=== PATIENT | male | born 1995 | race Caucasian/White ===

== ENCOUNTER 2019-06-29 22:41 | Emergency (ER) | payer SELFPAY ==
[2019-06-29 23:06] VITALS: BP 129/73; PULSE 93; RESP 18; TEMP 37.6; O2SAT 95; BMI 27.1
[2019-06-29 23:25] VITALS: BP 104/60; PULSE 84; RESP 22; TEMP 37.3; O2SAT 99
[2019-06-29 23:40] LABS: Influenza A by IFA Negative (Negative); Influenza B by IFA Positive (Negative)
--- NOTE | 2019-06-29 23:44 | W.ED.GENADLT ---
HPI - General Adult General: Chief complaint: Fever Stated complaint: fever, body aches Time Seen by Provider: 06/29/19 23:21 History of Present Illness: HPI narrative: Flulike symptoms started early this morning MD complaint: Flu Onset (ago): hour(s) Associated symptoms: Deny chest pain, dyspnea, headache(s), nausea, rash or vomiting Review of Systems Const: Reports: fever, chills and body aches Eyes: Denies: change in vision or blurry vision ENMT: Denies: throat pain or nasal congestion Card: Denies: chest pain or shortness of breath on exertion Resp: Reports: non-productive cough; Denies: shortness of breath or productive cough GI: Denies: abdominal pain, nausea or vomiting : Denies: difficulty urinating Musc: Denies: extremity pain Skin/Breast: Denies: rash Neuro: Denies: headache Psych: Denies: anxiety or depression Chaitanya/Lymph: Denies: easy bruising PFSH ED PFSH: Social History Smoking and tobacco status: current every day smoker Physical Exam Const: COMMON NORMALS: no apparent distress, average body habitus and oriented x3 HENMT: COMMON NORMALS: normocephalic HEAD & SCALP: normal to inspection and normocephalic FACE & SINUS: normal facial exam Eye: COMMON NORMALS: conjunctivae normal GENERAL EYE: normal appearance of both eyes CONJUNCTIVA: Yes conjunctivae normal Neck/C-Spine: COMMON NORMALS: no JVD Chest: COMMONS NORMALS: inspection of chest normal Resp: COMMON NORMALS: normal respiratory effort and clear to auscultation bilaterally AUSCULTATION: clear to auscultation bilaterally Cardio: COMMON NORMALS: no JVD, regular rate and regular rhythm RATE: regular rate RHYTHM: regular rhythm GI: COMMON NORMALS: normal to inspection, nondistended, normoactive bowel sounds Extremity: COMMON NORMALS: normal to inspection and full ROM Neuro: COMMON NORMALS: oriented x3 Course Vital Signs: Vital signs: Vital Signs Temperature 99.2 F 06/29/19 23:25 Pulse Rate 84 06/29/19 23:25 Respiratory Rate 22 H 06/29/19 23:25 Blood Pressure 104/60 06/29/19 23:25 Pulse Oximetry 99 06/29/19 23:25 [facility] - General Adult Lab Data: Labs: Lab Results 06/29/19 Range/Units 23:11 Influenza Type A A g Negative (Negative) POC Influenza B Ag Positive H (Negative) Coding Level of Care Code ED Microfabrication Engineer Manager for Jamir Bangura
[2019-06-29 23:59] LABS: Add Urine Microscopic? NO
--- NOTE | 2019-06-30 00:04 | PC.NURSE ---
RN reviewed and agrees with assessment.
[2019-06-30] MEDS: oseltamivir phosphate 75 mg Capsule PO (00:05)
[2019-06-30 00:14] LABS: Bilirubin Urine Neg (NEGATIVE); Blood Urine Neg (Negative); Glucose Urine UA Norm (Normal); Ketones Urine Negative (Negative); Leukocyte Esterase Urine Negative (Negative); Nitrate Urine Negative (Negative); Protein Urine Neg (Negative); Urine Appearance Clear (CLEAR); Urine Color Yellow (Yellow); Urobilinogen Urine Norm (Negative); pH Urine 6 (5-7)
[2019-06-30 00:16] VITALS: BP 120/64; PULSE 86; RESP 18; TEMP 37.6; O2SAT 99
== END 2019-06-30 00:10 | disposition home or self-care (01) ==
PROVIDERS: Emergency Provider Nurse Practitioner Family
DX: R50.9 Fever, unspecified (principal); R05 Cough; F17.200 Nicotine dependence, unspecified, uncomplicated
CPT/HCPCS: 81003; 87804; 99282; 99283

== ENCOUNTER → 2020-05-11 12:51 | Outpatient (BNVA) | payer OTHER, SELFPAY | PROVIDERS: Visit Provider Nurse Practitioner Family | DX: Z20.828 Contact with and (suspected) exposure to other viral communicable diseases (principal) | CPT/HCPCS: 87635 ==

== ENCOUNTER 2020-11-15 12:32 | Emergency (ER) | payer SELFPAY ==
[2020-11-15 12:54] VITALS: BP 111/64; PULSE 87; RESP 18; TEMP 37.1; O2SAT 98; BMI 24.4
--- NOTE | 2020-11-15 12:59 | W.ED.DENTAL ---
HPI - Dental/Oral General: Chief complaint: Dental/Oral Stated complaint: ORAL/DENTAL Time Seen by Provider: 11/15/20 12:59 History of Present Illness: HPI Narrative: Patient is a 25-year-old male comes to the ED with dental pain. Dental pain started approximately 3 days ago. The pain is located on his bottom right third molar. Says his right side of his face is hurting as well. Patient also has a mole on his left lower abdomen that has been growing and getting larger over the past year. Associated symptoms: Denies fever(s) or odynophagia Review of Systems Const: Denies: fever(s), chills or fatigue Eyes: Denies: change in vision or eye discomfort ENMT: Reports: dental pain; Denies: throat pain, odynophagia, nasal discharge or nasal congestion Card: Denies: chest pain, palpitations, edema, swelling of feet/ankles, dyspnea on exertion or orthopnea Resp: Denies: dyspnea, productive cough or non-productive cough GI: Denies: abdominal pain, nausea, vomiting, diarrhea, constipation or hematochezia : Denies: flank pain, difficulty urinating, dysuria or hematuria Musc: Denies: neck pain, back pain or extremity swelling Skin/Breast: Reports: new lesions (Large mole in left lower abdomen); Denies: rash Neuro: Denies: headache(s), numbness in extremities or weakness in extremities PFSH ED PFSH: Social History Smoking and tobacco status: current every day smoker Physical Exam Const: COMMON NORMALS: no acute distress, patient oriented x3 and alert GENERAL APPEARANCE: cooperative and comfortable HENMT: COMMON NORMALS: normocephalic HEAD & SCALP: normocephalic MOUTH: Normal oral and palatal mucosa present TEETH & GINGIVA: Yes caries (Bottom right molar tooth #32.) and Yes gingiva abnormal (Gingival edema surrounding tooth #32.) THROAT: posterior oropharynx normal and uvula midline Neck/C-Spine: COMMON NORMALS: supple GENERAL: Yes normal visual inspection Resp: COMMON NORMALS: normal respiratory effort, No retractions, No use of accessory muscles and clear to auscultation bilaterally AUSCULTATION: clear to auscultation bilaterally Cardio: COMMON NORMALS: regular rate, regular rhythm, S1 normal heart sound present, S2 normal heart sound present, No gallops present (Cardio), No clicks present (Cardio), No murmurs present (Cardio) and Peripheral pulses 2+ throughout RATE: regular rate RHYTHM: regular rhythm HEART SOUNDS: S1 normal heart sound present and S2 normal heart sound present PERIPHERAL PULSES: Peripheral pulses 2+ throughout GI: COMMON NORMALS: Normal to inspection, nondistended, normoactive bowel sounds present, Soft to palpation, non-tender and no masses PALPATION: Yes Soft to palpation : COMMON NORMALS: Yes no CVA tenderness BLADDER/KIDNEY EXAM: Yes no CVA tenderness Back/Pelvis: COMMON NORMALS: no CVA tenderness Neuro: COMMON NORMALS: patient oriented x3 and moves all extremities SENSORIUM/ORIENTATION: Yes alert Skin: NARRATIVE SKIN EXAM: On patient's left lower abdomen he has a large irregular shaped dark brown mole. The mole is approximately 2 cm in diameter and patient says the mole has grown that big in a little less than a year. GENERAL SKIN EXAM: dry skin Course Vital Signs: Vital signs: Vital Signs Temperature 98.7 F 11/15/20 12:54 Pulse Rate 61 11/15/20 13:28 Respiratory Rate 18 11/15/20 13:28 Blood Pressure 116/72 11/15/20 13:28 Pulse Oximetry 95 11/15/20 13:28 MDM - Dental/Oral MDM Narrative: Medical decision making narrative: Patient is a 25-year-old male comes to the ED with dental pain and he also has a mole on his left lower abdomen he is concerned about. Exam shows a patient that nontoxic-appearing and in no acute distress. He has dental caries of on bottom right third molar. Patient's molar on his left lower abdomen is large and approximately 2 cm in diameter. It is irregularly shaped and brown. Patient says it has grown from a tiny brown spot to the size with and under a year. I told him I would refer him to a racing secretary to evaluate the mole. I placed order with case management for patient to refer patient to Derm. Patient was given a dose of clindamycin and hydrocodone here in the ED. He was discharged home with a prescription for clindamycin. I told patient to contact a dentist and set up an appoint with them for further evaluation of dental pain. I told the rifle case repairer will contact them the next several days set up an appointment with the racing secretary. Return to ED precautions given. Patient understood agree with plan. Discharge Plan Discharge Patient Disposition: Home Clinical Impression: Pain due to dental caries, Atypical mole Condition: Stable Prescriptions: New clindamycin HCl 150 mg capsule 300 mg PO QID 7 Days Qty: 56 RF: 0 No Action No Known Home Medications RF: 0 Discharge Orders: Discharge ED (Routine); Ordered 11/15/20 Ordered By: James Ku Discharge Diet: Regular Discharge Activity: Resume usual activity Patient Instructions: Dental Caries (ED) Activity Restrictions/Additional Instructions: Follow-up with medical provider as directed. Schedule appointment with your dentist to have dental pain evaluated. manager of software development will contact you next several days to set up an appointment with a racing secretary. Take medications as prescribed. Take [id number] Motrin or Tylenol for pain. Return to the ER or your medical provider if condition worsens. Please read and understand discharge instructions. Thank you for choosing [facility] for your healthcare needs today. Please realize this is an emergency room and that we are providing you with a medical screening exam and this may not be complete and all inclusive of all the testing and or work up that you may need to determine your ailment or severity of your illness. It is very important that you follow up as instructed or that you return to the Emergency Department should you have concerns or if your condition changes or worsens in any way. Coding Level of Care Code ED Deputy Chief Magistrate for Jamir Bangura Exam Comprehensive
[2020-11-15] MEDS: clindamycin 150 mg Capsule 300 MG PO (13:23)
[2020-11-15] MEDS: HYDROcodone-acetaminophen 5-325 mg Tablet 1 TAB PO (13:24)
[2020-11-15 13:28] VITALS: BP 116/72; PULSE 61; RESP 18; O2SAT 95
--- NOTE | 2020-11-16 15:32 | DCPLANNER ---
residence manager had message to schedule a follow up appointment or patient with dermatology. residence manager called the dermatology clinic, spoke with Tere, gave clinic patients information. A follow up appointment is scheduled for Tuesday, January 12, [address] at 2:[address] Jackson. Clinic will call patient with appointment information.
--- NOTE | 2021-01-15 14:03 | DCPLANNER ---
Patient had a follow up appointment scheduled with dermatology for 01.12.21 appointment was rescheduled to a later date, patient is aware.
== END 2020-11-15 13:28 | disposition home or self-care (01) ==
PROVIDERS: Emergency Provider Physician Assistant
DX: K02.9 Dental caries, unspecified (principal); D36.7 Benign neoplasm of other specified sites; F17.210 Nicotine dependence, cigarettes, uncomplicated
CPT/HCPCS: 99283

== ENCOUNTER → 2021-01-07 16:29 | Outpatient (BNVA) | payer SELFPAY | PROVIDERS: Visit Provider Family Medicine | DX: F17.219 Nicotine dependence, cigarettes, with unspecified nicotine-induced disorders (principal); R20.0 Anesthesia of skin; R20.2 Paresthesia of skin; Z76.89 Persons encountering health services in other specified circumstances | CPT/HCPCS: 80053; 84443; 85025; 86803 ==

== ENCOUNTER → 2021-01-20 14:15 | Outpatient (BNVA) | payer OTHER, SELFPAY | PROVIDERS: Visit Provider Nurse Practitioner Family | DX: Z20.822 Contact with and (suspected) exposure to COVID-19 (principal); J06.9 Acute upper respiratory infection, unspecified | CPT/HCPCS: 87426 ==

== ENCOUNTER 2021-05-14 10:44 | Emergency (ER) | payer SELFPAY ==
[2021-05-14 12:03] VITALS: BP 111/64; PULSE 102; RESP 16; TEMP 37.7; O2SAT 96
--- NOTE | 2021-05-14 13:33 | PC.NURSE ---
pt called and stated they left ed because it was taking to long.
[2021-05-14 13:56] LABS: Adenovirus Not Detected (NOT DETECT); Chlamydia Pneumoniae Not Detected (NOT DETECT); Coronavirus 229E,HKU1,NL63,OC4 Not Detected (NOT DETECT); Human Metapneumovirus Not Detected (NOT DETECT); Human Rhinovirus/Enterovirus Not Detected (NOT DETECT); Influenza A Not Detected (NOT DETECT); Influenza A H1 Not Detected (NOT DETECT); Influenza A H1-2009 Not Detected (NOT DETECT); Influenza A H3 Not Detected (NOT DETECT); Influenza B Not Detected (NOT DETECT); Mycoplasma Pneumoniae Not Detected (NOT DETECT); Parainfluenza Virus Type 1 Not Detected (NOT DETECT); Parainfluenza Virus Type 2 Not Detected (NOT DETECT); Parainfluenza Virus Type 3 Not Detected (NOT DETECT); Parainfluenza Virus Type 4 Not Detected (NOT DETECT); Respiratory Syncytial Virus A Not Detected (NOT DETECT); Respiratory Syncytial Virus B Not Detected (NOT DETECT); SARS-COV-2 Detected (NOT DETECT)
[2021-05-14 13:58] LABS: Influenza A Not Detected (NOT DETECT); Influenza A H1 Not Detected (NOT DETECT); Influenza A H1-2009 Not Detected (NOT DETECT); Influenza A H3 Not Detected (NOT DETECT); Influenza B Not Detected (NOT DETECT); Results from Genmark
--- NOTE | 2021-05-14 17:09 | PC.NURSE ---
Left voice mail to return call to the ER
--- NOTE | 2021-05-15 16:17 | PC.NURSE ---
attempted to notify pt of postive covid results
== END 2021-05-14 13:34 | disposition left against medical advice (07) ==
PROVIDERS: Emergency Medicine; Emergency Provider Family Medicine
DX: Z53.21 Procedure and treatment not carried out due to patient leaving prior to being seen by health care provider (principal)
CPT/HCPCS: 87631; 87635

== ENCOUNTER 2021-07-07 12:24 | Day surgery (SDC) | payer SELFPAY ==
[2021-07-07] VITALS (8 sets, daily range): BP systolic 111–123; BP diastolic 50–75; PULSE 76–97; RESP 16–24; TEMP 36.2–38; O2SAT 94–100; BMI 24.4
--- NOTE | 2021-07-07 12:32 | P.HP_ITS ---
Providers/Chief Complaint Primary Care Provider: Enio Sun MD Chief Complaint: ABD Pain History of Present Illness Mukund Pineda is a 26 year old male who states that he started having lower abdominal pain yesterday night when he was watching TV. The pain is both on the right and the left lower abdomen though worse on the right. He denies any nausea, vomiting, fevers, chills, constipation or diarrhea. The pain persisted and therefore he went to an ER at an outside facility where he had a CT abdomen pelvis which showed acute appendicitis and was transferred here for surgical management. Review of Systems General: Reports: 10 or more systems reviewed and unremarkable except in HPI and below Medications/Allergies Home Medications Medication Instructions Recorded Confirmed Last Taken Type fluoxetine 20 mg capsule 20 mg PO DAILY 30 Days #30 cap 05/16/21 05/16/21 Unknown Rx prazosin 1 mg capsule 1 mg PO .qhs 30 Days #30 cap 05/16/21 05/16/21 Unknown Rx quetiapine 50 mg tablet 50 mg PO .qhs 30 Days #30 tab 05/16/21 05/16/21 Unknown Rx Allergies Allergy/AdvReac Type Severity Reaction Status Date / Time No Known Allergies Allergy Verified 05/14/21 12:06 PFSH Acute PFSH: Medical History (Updated 07/07/21 @ 12:35 by Rishabh Sam MD) Acute appendicitis Psychiatric care Surgical History Status post surgery Apparently had debridement and wound VAC placed when he was 12 years old for infection involving his left hip Family History Father Congestive heart failure (CHF) Social History Smoking and tobacco status: current every day smoker Alcohol intake: current Alcohol intake frequency: holidays/special occasions only Physical Exam Narrative: HEENT: Normocephalic Eye: Sclera /conjunctiva normal Abdomen: Soft to palpation, tender right lower quadrant, voluntary guarding, no rigidity Neurological: Oriented to place person and time Skin: Intact, no lesions appreciated on gross exam A&P Assessment and plan (1) Acute appendicitis: 26-year-old male who presents with lower abdominal pain since yesterday evening worse on the right than the left. CT at an outside facility showed acute appendicitis. WBC was 15.3 and rest of the labs were normal Plan for laparoscopic possible open appendectomy IV Zosyn Procedure, risks, benefits and alternatives have been discussed with the patient who wishes to proceed with surgery. Status: Acute Attestations Medical Necessity Statement*: Acute appendicitis requiring surgery Coding Level of Care Code Acute Sole Leveling Machine Operator for [facility] Fwjovani Diagnoses Acute appendicitis K35.80
--- NOTE | 2021-07-07 12:39 | P.ANESASSM_ITS ---
Pre-Anesthetic Assessment Height/Weight: Height 1.83 m Preop Diagnosis: Acute appendicitis Operation Date: 07/07/21 13:45 Proposed Procedures p Laparoscopic Appendectomy(Not Applicable) - Rishabh Sam MD Familial anesthetic complications: None Was Beta [place] taken within 24 hours: N/A Was Clonidine taken within 24 hours: N/A Last intake: Last solid 07/06/21 Last fluid (water ) 07/07/2021 @ 0900 Social Tobacco (Tobacco, marijuana) Exam alert, oriented x 3, clear to auscultation bilaterally and regular rate & rhythm Airway Submandibular: within normal limits Mallampati: Class I Dentition: chipped Comments: Comments: Broken molars History/ROS No significant complaints Pulmonary None reported CV/HEM None reported None reported Hepatic None reported GI Gastroesophageal Reflux Disease Acute appendicitis Metabolic None reported Musc/skel None reported Neuropsych None reported Anesthetic Plan ASA status: 2 Anesthesia: Anesthesia Evaluation and General Other: We discussed risk and benefits of general anesthesia including PONV, sore throat (sometimes severe), corneal abrasion, positioning and peripheral nerve injuries, life threatening allergic reaction, post operative ICU admission requiring p rolonged intubation, stroke, heart attack, , and rare incidences of recall. Patient consents to proceed with general anesthesia. Risk of > 500 ml blood loss (7ml/kg in children): No Medications/Allergies Home Medications Medication Instructions Recorded Confirmed Last Taken Type fluoxetine 20 mg capsule 20 mg PO DAILY 30 Days #30 cap 05/16/21 05/16/21 Unknown Rx prazosin 1 mg capsule 1 mg PO .qhs 30 Days #30 cap 05/16/21 05/16/21 Unknown Rx quetiapine 50 mg tablet 50 mg PO .qhs 30 Days #30 tab 05/16/21 05/16/21 Unknown Rx Allergies Allergy/AdvReac Type Severity Reaction Status Date / Time No Known Allergies Allergy Verified 05/14/21 12:06 [facility] Anesthesia Medical History Acute appendicitis Psychiatric care Surgical History Status post surgery Apparently had debridement and wound VAC placed when he was 12 years old for infection involving his left hip Family History Father Congestive heart failure (CHF) Social History Smoking and tobacco status: current every day smoker Alcohol intake: current Alcohol intake frequency: holidays/special occasions only Data Anesthesia Cardiac Studies: No Data to Display
[2021-07-07] MEDS: sodium chloride 0.9% 1,000 ML 30 ML IV (13:10)
[2021-07-07] MEDS: piperacillin-tazobactam 3.375 GM in sodium chloride 0.9% (plus) 50 ML IV (13:50)
--- NOTE | 2021-07-07 14:36 | PM.OP ---
Operative Report Date of procedure: July 07, 2021 Pre-op diagnosis: Acute appendicitis Post-op diagnosis: same Procedure done: Laparoscopic appendectomy Specimens removed/disposition: Appendix Surgeon: Rishabh Sam Condition: stable Disposition: PACU Procedure: The patient was taken to the Operating Room and intubated under general anesthesia after antibiotic had been administered. Using a 15 blade, a 1-cm infraumbilical incision was made and using open Oseas technique, the peritoneal cavity was entered. A 12mm port with balloon was placed and 14 mm of pneumoperitoneum was created and 10-mm 30 degree scope was introduced. Two separate 5mm ports were placed in the left lower quadrant and suprapubic area under direct visualization. The appendix was noted in the right lower quadrant and appeared acutely inflamed.. Using [place] forceps, an opening was made in the mesoappendix near the base of the appendix. An Endo JACQUELINE stapler 45mm long 3.5mm blue load was introduced to divide the appendix at it's base. Using electrocautery, the mesoappendix including the appendicular artery was divided. There was no bleeding noted and the staple line appeared intact. The right lower quadrant was irrigated with saline and an EndoCatch bag was introduced to remove the appendix. All three ports were removed under direct visualization and there was no bleeding noted on the port sites. 10 0.5% Marcaine was infiltrated at the port sites. The fascia at the umbilical port was closed using figure of eight 0-Vicryl sutures and subcutaneous tissue was approximated using 3-0 Vicryl and skin at all 3 port sites was closed using 4-0 Monocryl and Dermabond. 10cc of 0.5% Marcaine was infiltrated around the incision. The patient was extubated and transferred to recovery room in stable condition.
--- NOTE | 2021-07-07 16:10 | SUR.PHASEII ---
15:15 RECEIVED REPORT FROM PACU NURSE. PATIENT A+O X 3 VENTILATING WELL C/O MILD ABDOMEN SORENESS. TOLERATING PO FLUIDS WELL.
[2021-07-07] MEDS: HYDROcodone-acetaminophen 5-325 mg Tablet 1 TAB PO (16:19)
--- NOTE | 2021-07-07 16:53 | ANE.PACU2 ---
Inpatient post-anesthesia follow up: Airway intact: Yes Vital signs: Temperature 98.1 F Pulse Rate 78 Respiratory Rate 16 Blood Pressure 111/62 Pulse Oximetry 97 Oxygen Delivery Me thod Room Air Oxygen Flow Rate 6 Fraction of Inspir ed Oxygen Hydration adequate: Yes Nausea and vomiting: No Pain level: 2 Mental status: Baseline
== END 2021-07-07 16:35 | disposition home or self-care (01) ==
PROVIDERS: PCP Family Medicine; Visit Provider Surgery
PROC: 0DTJ4ZZ Resection of Appendix, Percutaneous Endoscopic Approach (ICD-10-PCS; CPT 44970; principal; 2021-07-07 13:45)
DX: K35.80 Unspecified acute appendicitis (principal); K21.9 Gastro-esophageal reflux disease without esophagitis; F17.210 Nicotine dependence, cigarettes, uncomplicated
CPT/HCPCS: 44970; 88304; J0330; J1100; J1885; J2250; J2405; J2543; J2704; J2710; J3010; J3490; J7030; J7040

== ENCOUNTER → 2022-08-10 12:59 | Outpatient (BNVA) | payer SELFPAY | PROVIDERS: PCP Family Medicine; Visit Provider Nurse Practitioner | DX: M25.512 Pain in left shoulder (principal) | CPT/HCPCS: 73030 ==

== ENCOUNTER 2023-09-13 17:22 | Emergency (ER) | payer SELFPAY ==
--- NOTE | 2023-09-13 17:23 | ECG_ITS ---
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 Measurements Intervals [place] Rate: 83 P: 68 OK: 140 QRS: 58 QRSD: 98 T: 68 QT: 338 QTc: 398 Interpretive Statements SINUS RHYTHM WITH SINUS ARRHYTHMIA INDETERMINATE AXIS EARLY REPOLARIZATION [ST ELEVATION WITH NORMALLY INFLECTED T-WAVE] MODERATE ST DEPRESSION [0.05+ mV ST DEPRESSION] Compared to ECG 09/23/2015 05:39:59 Indeterminate axis now present ST (T wave) deviation now present Electronically Signed On 09-13-2023 22:47:51 CDT by Dale Viramontes M.D. [email or web address]
[2023-09-13 17:28] VITALS: PULSE 87; RESP 16; TEMP 36.8; O2SAT 94
--- NOTE | 2023-09-13 18:07 | XRR_ITS ---
PROCEDURE INFORMATION: Exam: XR Chest Exam date and time: 09/13/2023 6:13 PM Age: 28 years old Clinical indication: Chest wall pain; Additional info: Cp TECHNIQUE: Imaging protocol: Radiologic exam of the chest. Views: 1 view. COMPARISON: CR XR shoulder LT min 2V* [id number] 08/10/2022 1:14 PM FINDINGS: Lungs: No focal consolidation. Pleural spaces: No evidence of pneumothorax. No evidence of pleural effusion. Heart/Mediastinum: Cardiomediastinal silhouette is within normal limits. Bones/joints: No evidence of acute osseous abnormality. XR/XR chest 1V portable [id number] IMPRESSION: 1. No acute cardiopulmonary abnormality.
[2023-09-13 18:29] VITALS: BP 130/89; PULSE 70; RESP 20; O2SAT 96
--- NOTE | 2023-09-13 18:43 | W.ED.CHESTPA ---
HPI - Chest Pain General: Chief Complaint: Chest Pain Stated Complaint: Chest pains Time Seen by Provider: 09/13/23 18:22 History of Present Illness: Patient has had a rash on his chest and arms. He also has been having some shortness of breath and some pain in his chest with a cough. Is been going on for couple days. Review of Systems Narrative: Constitutional symptoms: Negative except as documented in HPI. Skin symptoms: Negative except as documented in HPI. Eye symptoms: Negative except as documented in HPI. ENMT symptoms: Negative except as documented in HPI. Respiratory symptoms: Negative except as documented in HPI. Cardiovascular symptoms: Negative except as documented in HPI. Gastrointestinal symptoms: Negative except as documented in HPI. Genitourinary symptoms: Negative except as documented in HPI. Musculoskeletal symptoms: Negative except as documented in HPI. Neurologic symptoms: Negative except as documented in HPI. Psychiatric symptoms: Negative except as documented in HPI. Endocrine symptoms: Negative except as documented in HPI. PFSH ED PFSH: Medical History Acute appendicitis Surgical History S/P laparoscopic appendectomy (07/07/21) Status post surgery Apparently had debridement and wound VAC placed when he was 12 years old for infection involving his left hip Family History Father Congestive heart failure (CHF) Social History Smoking and tobacco/nicotine status: current every day tobacco/nicotine user Quit status (tobacco/nicotine): considering quitting Alcohol intake: current Alcohol intake frequency: holidays/special occasions only Substance/Drug Use: current Substance/Drug use frequency: daily Physical Exam Narrative: EXAM NARRATIVE: General: Alert, no acute distress. Skin: Warm, dry. Patient has small lesions on his arm and on his chest that are consistent with molluscum contagiosum. Small pustules and some of them. Does not appear herpetic. Head: Normocephalic, atraumatic. Neck: Supple, trachea midline. Eye: Extraocular movements are intact. Ears, nose, mouth and throat: mucosa moist. Cardiovascular: Regular, Normal peripheral perfusion. Respiratory: Lungs are clear to auscultation, respirations are non-labored, breath sounds are equal, Symmetrical chest wall expansion. Gastrointestinal: Soft, Nontender, Non distended, Normal bowel sounds. Musculoskeletal: Normal ROM, no deformity. Neurological: Alert and oriented, No focal neurological deficit observed. Psychiatric: Cooperative, appropriate mood & affect. Course Vital Signs: Vital signs: Vital Signs Temperature 98.2 F 09/13/23 17:28 Pulse Rate 70 09/13/23 19:04 Respiratory Rate 16 09/13/23 19:04 Blood Pressure 130/89 09/13/23 19:04 Pulse Oximetry 96 09/13/23 19:04 Oxygen Delivery Me thod Room Air 09/13/23 17:28 MDM - Chest Pain Medical Decision Making Medical decision making: Differential diagnosis including but not limited to and based on the above HPI, review of systems and physical exam: Chest x-ray and EKG were ordered. Chest x-ray: No acute process. No infiltrate. No pneumothorax. No cardiomegaly. This was reviewed and interpreted by myself the ER physician. I reviewed the patient's medical record. Assessment and plan: Upper respiratory infection Molluscum contagiosum - Discharged home - Discussed plan with patient. Answered any questions. - Evaluation and treatment of this problem were appropriate in the emergency setting. Lab Data Radiology Impressions Chest X-Ray 09/13/23 18:07 IMPRESSION: 1. No acute cardiopulmonary abnormality. All radiology interpretation(s) finalized by discharge Discharge Plan Discharge Patient Disposition: Home Clinical Impression: Upper respiratory infection, Molluscum contagiosum Condition: Stable Prescriptions: New Zithromax Z-Neel 250 mg tablet See Rx Instructions .ROUTE .COMPLEX Qty: 6 0RF Rx Instructions: For 250 mg dose pack: take 500 mg today (day 1), then 250 mg for 4 days (days 2-5) dexamethasone 6 mg tablet 6 mg PO DAILY 5 Days Qty: 5 0RF diclofenac sodium 50 mg tablet,delayed release (DR/EC) 50 mg PO Q12H Qty: 20 0RF Zithromax Z-Neel 250 mg tablet See Rx Instructions .ROUTE .COMPLEX Qty: 6 0RF Rx Instructions: For 250 mg dose pack: take 500 mg today (day 1), then 250 mg for 4 days (days 2-5) dexamethasone 6 mg tablet 6 mg PO DAILY 5 Days Qty: 5 0RF diclofenac sodium 50 mg tablet,delayed release (DR/EC) 50 mg PO Q12H Qty: 20 0RF No Action amoxicillin 500 mg capsule 500 mg PO TID 10 Days Qty: 30 0RF Discharge Orders: Discharge ED (Routine); Ordered 09/13/23 Ordered By: Doris Kaufman Referrals: Enio Sun MD [Primary Care Provider] - 4-7 days Discharge Diet: Usual diet Discharge Activity: Increase activity as tolerated Patient Instructions: Molluscum Contagiosum (ED), Upper Respiratory Infection (ED), Opioid Safety, Pain Management Activity Restrictions/Additional Instructions: Thank you for choosing [facility] for your healthcare needs today. Please realize this is an emergency room and that we are providing you with a medical screening exam and this may not be complete and all inclusive of all the testing and or work up that you may need to determine your ailment or severity of your illness. You have been screened and evaluated and felt safe for discharge. Health conditions do change or evolve sometimes and as such it is important that you follow up with your Primary Doctor to be re checked, 3-5 days is a general good time frame for follow up. 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
[2023-09-13 19:04] VITALS: BP 130/89; PULSE 70; RESP 16; O2SAT 96
== END 2023-09-13 19:05 | disposition home or self-care (01) ==
PROVIDERS: Emergency Provider Emergency Medicine; PCP Family Medicine
DX: J06.9 Acute upper respiratory infection, unspecified (principal); B08.1 Molluscum contagiosum; Z72.0 Tobacco use
CPT/HCPCS: 71045; 93005; 99284

== ENCOUNTER → 2024-02-06 10:15 | Outpatient (BNVA) | payer MEDICAID, SELFPAY | PROVIDERS: PCP Family Medicine; Visit Provider Nurse Practitioner | DX: F41.1 Generalized anxiety disorder (principal); F43.10 Post-traumatic stress disorder, unspecified | CPT/HCPCS: 80061; 83036 ==

== ENCOUNTER → 2025-02-12 12:46 | Outpatient (BNVA) | payer OTHER, SELFPAY ==
[2024-02-09 12:47] VITALS: BP 132/73; BMI 27.0
== END ==
PROVIDERS: PCP Family Medicine; Visit Provider Nurse Practitioner
DX: F41.1 Generalized anxiety disorder (principal); F43.10 Post-traumatic stress disorder, unspecified; Z79.899 Other long term (current) drug therapy
CPT/HCPCS: 80061; 83036

== ENCOUNTER → 2025-02-19 10:09 | Outpatient (BNVA) | payer MEDICAID, SELFPAY ==
[2025-02-17 15:14] VITALS: BP 129/80; BMI 31.6
== END ==
PROVIDERS: PCP Family Medicine; Visit Provider Family Medicine
DX: Z13.6 Encounter for screening for cardiovascular disorders (principal)
CPT/HCPCS: 80053; 84439; 84443; 85025